=== PATIENT | female | born 1965 | race Caucasian/White ===

== ENCOUNTER → 2016-11-03 | Outpatient (CLI) | payer BC ==
[2016-11-03 08:34] LABS: CHLORIDE,CL 102 mmol/L (98-110); SODIUM,NA 139 mmol/L (136-146)
== END ==
LOC: MW.CHFP 07:30
PROVIDERS: ATTEND Nurse Practitioner Family
DX: E11.9 Type 2 diabetes mellitus without complications (principal)
CPT/HCPCS: 36415; 80053; 80061; 82044; 83036

== ENCOUNTER → 2016-11-04 | Outpatient (CLI) | payer BC ==
--- NOTE | 2016-11-06 20:15 | US ---
EXAMINATION: Transvaginal pelvic ultrasound HISTORY: Pain COMPARISON: None TECHNIQUE: Grayscale and color Doppler images obtained transvaginally. FINDINGS: Hysterectomy. Minimal free pelvic fluid. Both the left and right ovaries are normal in size, contour, and echogenicity demonstrating normal c olor and spectral Doppler flow. No adnexal masses. IMPRESSION: 1. Hysterectomy, otherwise unremarkable pelvic ultrasound.
== END | disposition home or self-care (01) ==
LOC: MW.US 15:03
PROVIDERS: ATTEND Nurse Practitioner Family
DX: R10.9 Unspecified abdominal pain (principal); Z90.710 Acquired absence of both cervix and uterus
CPT/HCPCS: 76830; 76830-26

== ENCOUNTER 2017-03-27 12:26 | Emergency (ER) | payer BC ==
--- NOTE | 2017-03-27 13:03 | EDM.PDOC ---
ED HPI GENERAL MEDICAL PROBLEM - General Chief Complaint: ENT Problem Stated Complaint: POSSIBLY REACTION TO MEDS Time Seen by Provider: 03/27/17 12:54 - History of Present Illness INITIAL COMMENTS - FREE TEXT/NARRATIVE: HISTORY AND PHYSICAL: History of present illness: The patient is a 51-year-old female who presents with complaints of swelling of her uvula since she had anesthesia for a colonoscopy and upper endoscopy on , 2 days ago. The patient states she was not intubated for the procedure but did have an oral airway placed and since that time she has noticed that her uvula is swollen and this tickling and gagging the back of her throat. She has had no vomiting has no shortness of breath has no swollen glands chest pain. She is able to eat and drink. Review of systems: As per history of present illness and below otherwise all systems reviewed and negative. Past medical history: As per history of present illness and as reviewed below otherwise noncontributory. Surgical history: As per history of present illness and as reviewed below otherwise noncontributory. Social history: No reported history of drug or alcohol abuse. Family history: As per history of present illness and as reviewed below otherwise noncontributory. Physical exam: Gen.: Well-developed well-nourished female who is nontoxic and speaking clearly without hoarseness or muffled voice. She is not breathless. HEENT: Atraumatic, normocephalic, pupils reactive, negative for conjunctival pallor or scleral icterus, mucous membranes moist, throat clear of exudates and there is some minimal posterior oropharyngeal erythema, the uvula is mildly inflamed but midline and does dip back below the base of the tongue. There is some shoddy anterior cervical adenopathy, neck supple, nontender, trachea midline. Lungs: Clear to auscultation, breath sounds equal bilaterally, chest nontender. Heart: S1S2, regular rate and rhythm no overt murmurs Abdomen: Soft, nondistended, nontender. NABS Pelvis: Deferred Genitourinary: Deferred. Rectal: Deferred. Extremities: Atraumatic, negative for cords or calf pain. Neurovascular unremarkable. Neuro: Awake, alert, oriented. Cranial nerves II through XII unremarkable. Cerebellum unremarkable. Motor and sensory unremarkable throughout. Exam nonfocal. Diagnostics: [] Therapeutics: [] I discussed with the patient that she needs to on antibiotics and she states she does have a drug allergy to penicillin but she has always taken amoxicillin without any complications. She absolutely assures me that she has no issues with amoxicillin and can't take it. The patient does state that she has had reactions to steroids so I will defer giving her any Impression: Uvulitis Definitive disposition and diagnosis as appropriate pending reevaluation and review of above. Throat Pain Score (Numeric/FACES): 3 - Related Data Allergies Allergy/AdvReac Type Severity Reaction Status Date / Time azithromycin [From Zithromax] Allergy Rash Verified 03/27/17 12:47 fluticasone propionate Allergy Cannot Verified 03/27/17 12:47 [From Flonase] Remember gentamicin [Gentamicin] Allergy Cannot Verified 03/27/17 12:47 Remember methylprednisolone Allergy Rash Verified 03/27/17 12:47 Penicillins Allergy Rash Verified 03/27/17 12:47 phenazopyridine HCl Allergy Hives Verified 03/27/17 12:47 [From Pyridium] Sulfa (Sulfonamide Allergy Rash Verified 03/27/17 12:47 Antibiotics) Home Meds: Home Meds Aspirin [Redwood Aspirin] 81 mg PO DAILY 08/20/14 [History] Cetirizine HCl 10 mg PO DAILY 08/20/14 [History] Hydrochlorothiazide 12.5 mg PO DAILY 08/20/14 [History] Potassium Chloride [Klor-Con 10] 10 meq PO DAILY 08/20/14 [History] diphenhydrAMINE [Benadryl] 25 mg PO ASDIRECTED PRN 08/20/14 [History] metFORMIN HCl [Metformin HCl] 1,000 mg PO BID 08/20/14 [History] Dapagliflozin Propanediol [Farxiga] 10 mg PO DAILY 08/01/15 [History] Lisinopril 10 mg PO DAILY 03/27/17 [History] Past Medical History HEENT History: Reports: None Cardiovascular History: Reports: Heart Murmur, Hypertension Respiratory History: Reports: None Gastrointestinal History: Reports: GERD Genitourinary History: Reports: Renal Calculus Musculoskeletal History: Reports: Other (See Below) Other Musculoskeletal History: cyst removed from rt wrist Neurological History: Reports: None Psychiatric History: Reports: None Endocrine/Metabolic History: Reports: Diabetes, Type II Hematologic History: Reports: None Immunologic History: Reports: None Oncologic (Cancer) History: Reports: None Dermatologic History: Reports: Other (See Below) Other Dermatologic History: eczema to rt foot - Past Surgical History Head Surgeries/Procedures: Reports: None GI Surgical History: Reports: Cholecystectomy Social & Family History - Tobacco Use Smoking Status *Q: Never Smoker Second Hand Smoke Exposure: No - Caffeine Use Caffeine Use: Reports: Soda - Alcohol Use Days Per Week of Alcohol Use: 1 Number of Drinks Per Day: 2 Total Drinks Per Week: 2 - Recreational Drug Use Recreational Drug Use: No Drug Use in Last 12 Months: No ED ROS GENERAL - Review of Systems Review Of Systems: ROS reveals no pertinent complaints other than HPI. ED EXAM, GENERAL - Physical Exam Exam: See Below (See dictation) Course - Vital Signs Last Recorded V/S: Last Vital Signs Temp 35.9 C 03/27/17 12:44 Pulse 77 03/27/17 12:44 Resp 18 03/27/17 12:44 BP 151/87 H 03/27/17 12:44 Pulse Ox 96 03/27/17 12:44 Departure - Departure Time of Disposition: 13:01 Disposition: Home, Self-Care 01 Condition: Good Clinical Impression: Uvulitis - Discharge Information Forms: ED Department Discharge Additional Instructions: The following information is given to patients seen in the emergency department who are being discharged to home. This information is to outline your options for follow-up care. We provide all patients seen in our emergency department with a follow-up referral. The need for follow-up, as well as the timing and circumstances, are variable depending upon the specifics of your emergency department visit. If you don't have a primary care physician on staff, we will provide you with a referral. We always advise you to contact your personal physician following an emergency department visit to inform them of the circumstance of the visit and for follow-up with them and/or the need for any referrals to a consulting specialist. The emergency department will also refer you to a specialist when appropriate. This referral assures that you have the opportunity for followup care with a specialist. All of these measure are taken in an effort to provide you with optimal care, which includes your followup. Under all circumstances we always encourage you to contact your private physician who remains a resource for coordinating your care. When calling for followup care, please make the office aware that this follow-up is from your recent emergency room visit. If for any reason you are refused follow-up, please contact the [facility] emergency department at and ask to speak to the emergency department charge nurse. [facility] Primary care- Internal Medicine and Family [address] [id number] Push hydration and try to avoid foods that are acidic or very salty as this will irritate the area in her throat. Take antibiotics as directed until they are finished. Please call and follow-up with primary care next few days to reevaluate your treatment return to ER as needed and as discussed.
[2017-03-27 13:21] VITALS: BP 135/88
== END 2017-03-27 13:17 | disposition home or self-care (01) ==
LOC: MW.ED 12:26
DX: K12.2 Cellulitis and abscess of mouth (principal); I10 Essential (primary) hypertension; K21.9 Gastro-esophageal reflux disease without esophagitis; Z88.2 Allergy status to sulfonamides; Z79.82 Long term (current) use of aspirin; E11.9 Type 2 diabetes mellitus without complications; Z79.84 Long term (current) use of oral hypoglycemic drugs; Z79.899 Other long term (current) drug therapy; Z87.442 Personal history of urinary calculi; Z88.0 Allergy status to penicillin; Z88.1 Allergy status to other antibiotic agents; Z90.49 Acquired absence of other specified parts of digestive tract
CPT/HCPCS: 99283

== ENCOUNTER 2017-08-21 10:22 | Emergency (ER) | payer BC ==
--- NOTE | 2017-08-21 11:10 | EDM.PDOC ---
ED HPI GENERAL MEDICAL PROBLEM - General Chief Complaint: Genitourinary Problem Stated Complaint: PAINFUL URINATION Time Seen by Provider: 08/21/17 10:40 Source of Information: Reports: Patient History Limitations: Reports: No Limitations - History of Present Illness INITIAL COMMENTS - FREE TEXT/NARRATIVE: History of present illness: [52-year-old female comes in complaining of potential kidney stones. Patient indicates that she has a history of same and that she is presenting with the same and/or similar symptoms] Review of systems: As per history of present illness and below otherwise all systems reviewed and negative. Past medical history: As per history of present illness and as reviewed below otherwise noncontributory. Surgical history: As per history of present illness and as reviewed below otherwise noncontributory. Social history: No reported history of drug or alcohol abuse. Family history: As per history of present illness and as reviewed below otherwise noncontributory. Physical exam: HEENT: Atraumatic, normocephalic, pupils reactive, negative for conjunctival pallor or scleral icterus, mucous membranes moist, throat clear, neck supple, nontender, trachea midline. Lungs: Clear to auscultation, breath sounds equal bilaterally, chest nontender. Heart: S1S2, regular, negative for clicks, rubs, or JVD. Abdomen: Soft, nondistended, nontender. Negative for masses or hepatosplenomegaly. Negative for costovertebral tenderness. Pelvis: Stable nontender. Genitourinary: Deferred. Rectal: Deferred. Extremities: Atraumatic, negative for cords or calf pain. Neurovascular unremarkable. Neuro: Awake, alert, oriented. Cranial nerves II through XII unremarkable. Cerebellum unremarkable. Motor and sensory unremarkable throughout. Exam nonfocal. Close assessment is benign save subjective complaint as noted in history of present illness. Hematuria noted on exam Diagnostics: [CBC, CMP, UA] Therapeutics: [IV fluid] Impression: [#1Renal calculi #2 UTI #3 hematuria] Plan: [Macrobid follow-up with urologist] Definitive disposition and diagnosis as appropriate pending reevaluation and review of above. - Related Data Allergies Allergy/AdvReac Type Severity Reaction Status Date / Time azithromycin [From Zithromax] Allergy Rash Verified 08/21/17 10:39 fluticasone propionate Allergy Cannot Verified 08/21/17 10:39 [From Flonase] Remember gentamicin [Gentamicin] Allergy Cannot Verified 08/21/17 10:39 Remember methylprednisolone Allergy Rash Verified 08/21/17 10:39 Penicillins Allergy Rash Verified 08/21/17 10:39 phenazopyridine HCl Allergy Hives Verified 08/21/17 10:39 [From Pyridium] Sulfa (Sulfonamide Allergy Rash Verified 08/21/17 10:39 Antibiotics) Home Meds: Home Meds Aspirin [Kennan Aspirin] 81 mg PO DAILY 08/20/14 [History] Cetirizine HCl 10 mg PO DAILY 08/20/14 [History] Hydrochlorothiazide 12.5 mg PO DAILY 08/20/14 [History] Potassium Chloride [Klor-Con 10] 10 meq PO DAILY 08/20/14 [History] diphenhydrAMINE [Benadryl] 25 mg PO ASDIRECTED PRN 08/20/14 [History] metFORMIN HCl [Metformin HCl] 1,000 mg PO BID 08/20/14 [History] Dapagliflozin Propanediol [Farxiga] 10 mg PO DAILY 08/01/15 [History] Lisinopril 10 mg PO DAILY 03/27/17 [History] Liraglutide [Victoza] 0.6 mg SQ DAILY 08/21/17 [History] Nitrofurantoin Monohyd/M-Cryst [Macrobid 100 mg Capsule] 100 mg PO BID #20 capsule 08/21/17 [Rx] Past Medical History HEENT History: Reports: None Cardiovascular History: Reports: Heart Murmur, Hypertension Respiratory History: Reports: None Gastrointestinal History: Reports: GERD Genitourinary History: Reports: Renal Calculus Musculoskeletal History: Reports: Other (See Below) Other Musculoskeletal History: cyst removed from rt wrist Neurological History: Reports: None Psychiatric History: Reports: None Endocrine/Metabolic History: Reports: Diabetes, Type II Hematologic History: Reports: None Immunologic History: Reports: None Oncologic (Cancer) History: Reports: None Dermatologic History: Reports: Other (See Below) Other Dermatologic History: eczema to rt foot - Past Surgical History Head Surgeries/Procedures: Reports: None GI Surgical History: Reports: Cholecystectomy Social & Family History - Family History Family Medical History: Noncontributory - Tobacco Use Smoking Status *Q: Never Smoker Second Hand Smoke Exposure: No - Caffeine Use Caffeine Use: Reports: Soda - Alcohol Use Days Per Week of Alcohol Use: 1 Number of Drinks Per Day: 2 Total Drinks Per Week: 2 - Recreational Drug Use Recreational Drug Use: No Drug Use in Last 12 Months: No ED ROS GENERAL - Review of Systems Review Of Systems: See Below (History of present illness) ED EXAM, GENERAL - Physical Exam Exam: See Below (See history of present illness) Course - Vital Signs Last Recorded V/S: Last Vital Signs Temp 36.6 C 08/21/17 10:43 Pulse 68 08/21/17 10:43 Resp 18 08/21/17 10:43 BP 154/98 H 08/21/17 10:43 Pulse Ox 96 08/21/17 10:43 - Orders/Labs/Meds Orders: Active Orders 24 hr Category Date Time Status Abdomen Pelvis wo Cont [CT] Stat Exams 08/21/17 11:54 Taken Labs: Laboratory Tests 08/21/17 08/21/17 08/21/17 Range/Units 10:30 12:03 12:03 WBC 10.58 (4.0-11.0) K/uL RBC 4.63 (4.30-5.90) M/uL Hgb 14.4 (12.0-16.0) g/dL Hct 42.2 (36.0-46.0) % MCV 91.1 (80.0-98.0) fL MCH 31.1 (27.0-32.0) pg MCHC 34.1 (31.0-37.0) g/dL RDW Std Deviation 44.0 (28.0-62.0) fl RDW Coeff of Kelle 13 (11.0-15.0) % Plt Count 270 (150-400) K/uL MPV 9.00 (7.40-12.00) fL Neut % (Auto) 65.2 (48.0-80.0) % Lymph % (Auto) 25.2 (16.0-40.0) % [place] % (Auto) 5.9 (0.0-15.0) % Eos % (Auto) 3.3 (0.0-7.0) % Baso % (Auto) 0.4 (0.0-1.5) % Neut # (Auto) 6.9 H (1.4-5.7) K/uL Lymph # (Auto) 2.7 H (0.6-2.4) K/uL [place] # (Auto) 0.6 (0.0-0.8) K/uL Eos # (Auto) 0.4 (0.0-0.7) K/uL Baso # (Auto) 0.0 (0.0-0.1) K/uL Nucleated RBC % 0.0 /100WBC Nucleated RBCs # 0 K/uL Sodium 141 (136-146) mmol/L Potassium 4.1 (3.5-5.1) mmol/L Chloride 106 (98-110) mmol/L Carbon Dioxide 24 (21-31) mmol/L BUN 11 (6.0-23.0) mg/dL Creatinine 0.7 (0.6-1.5) mg/dL Est Cr Clr Drug Dosing 81.18 mL/min Estimated GFR (MDRD) > 60.0 ml/min Glucose 105 (60-110) mg/dL Calcium 9.3 (8.8-10.8) mg/dL Total Bilirubin 0.5 (0.1-1.5) mg/dL AST 33 (5-40) IU/L ALT 52 (8-54) IU/L Alkaline Phosphatase 98 (40-150) Total Protein 7.4 (6.0-8.0) g/dL Albumin 4.2 (3.5-5.0) g/dL Globulin 3.2 (2.0-3.5) g/dL Albumin/Globulin Ratio 1.3 (1.3-2.8) Urine Color YELLOW Urine Appearance CLEAR Urine pH 6.5 (5.0-8.0) Ur Specific [place] <= 1.005 (1.001-1.035) Urine Protein 100 (NEGATIVE) mg/dL Urine Glucose (UA) >=1000 (NEGATIVE) mg/dL Urine Ketones NEGATIVE (NEGATIVE) mg/dL Urine Occult Blood LARGE H (NEGATIVE) Urine Nitrite NEGATIVE (NEGATIVE) Urine Bilirubin NEGATIVE (NEGATIVE) Urine Urobilinogen 0.2 (<2.0) EU/dL Ur Leukocyte Esterase TRACE (NEGATIVE) Urine RBC 110-115 (0-2/HPF) Urine WBC 85-90 (0-5/HPF) Ur Epithelial Cells FEW (NONE-FEW) Urine Bacteria FEW (NEGATIVE) Meds: Medications Discontinued Medications Generic Name Dose Route Start Last Admin Trade Name Freq PRN Reason Stop Dose Admin Sodium Chloride 1,000 mls @ 999 mls/hr 08/21/17 11:50 08/21/17 13:05 Normal Saline IV 08/21/17 12:50 999 mls/hr STAT ONE Administration Ketorolac Tromethamine 30 mg 08/21/17 11:50 08/21/17 13:05 Toradol IVPUSH 08/21/17 11:51 30 mg ONETIME ONE Administration Departure - Departure Time of Disposition: 13:32 Disposition: Home, Self-Care 01 Condition: Good Clinical Impression: UTI, Urinary tract infectious disease, Kidney stone - Discharge Information Prescriptions: Nitrofurantoin Monohyd/M-Cryst [Macrobid 100 mg Capsule] 100 mg PO BID #20 capsule Referrals: Carli Lazcano [employer] [employer]SULTANT [Primary Care Provider] - Forms: ED Department Discharge Additional Instructions: The following information is given to patients seen in the emergency department who are being discharged to home. This information is to outline your options for follow-up care. We provide all patients seen in our emergency department with a follow-up referral. The need for follow-up, as well as the timing and circumstances, are variable depending upon the specifics of your emergency department visit. If you don't have a primary care physician on staff, we will provide you with a referral. We always advise you to contact your personal physician following an emergency department visit to inform them of the circumstance of the visit and for follow-up with them and/or the need for any referrals to a consulting specialist. The emergency department will also refer you to a specialist when appropriate. This referral assures that you have the opportunity for follow-up care with a specialist. All of these measure are taken in an effort to provide you with optimal care, which includes your follow-up. Under all circumstances we always encourage you to contact your private physician who remains a resource for coordinating your care. When calling for follow-up care, please make the office aware that this follow-up is from your recent emergency room visit. If for any reason you are refused follow-up, please contact the [facility] Emergency Department at and asked to speak to the emergency department charge nurse. Take medication as directed Follow-up with PCP in 3-5 days Return to ED as needed as discussed - My Orders Last 24 Hours: My Active Orders 08/21/17 11:54 Abdomen Pelvis wo Cont [CT] Stat - Assessment/Plan Last 24 Hours: My Active Orders 08/21/17 11:54 Abdomen Pelvis wo Cont [CT] Stat
[2017-08-21] MEDS ORDERED: Ketorolac 30 MG/ML SDV IVPUSH ONE (11:50)
[2017-08-21] MEDS ORDERED: Sodium Chloride 0.9% 1,000 ML IV ONE (11:50)
[2017-08-21 12:35] LABS: CHLORIDE,CL 106 mmol/L (98-110); SODIUM,NA 141 mmol/L (136-146)
[2017-08-21 13:52] VITALS: BP 153/89
--- NOTE | 2017-08-24 18:18 | CT ---
EXAM DATE: 08/21/17 PATIENT'S AGE: 52 Patient: DOTTIE MCNEIL Facility: [place], [place] Site . Site : [id number] Study: CT Abdomen/Pelvis [id number]/30/2017 12:38:59 PM Ordering Physician: Doctor Guevara Final Report: Indication: Flank pain painful urination Technique: Non contrast CT abdomen and pelvis with coronal and sagittal reformatted images obtained Comparison: No comparison studies are available. Findings: Minimal basilar atelectasis. Severe fatty liver. The spleen, pancreas, left adrenal glands unremarkable. 1.3 centimeter right adrenal nodule incompletely assessed on this study. Nonobstructing renal calculi . Low-density round lesion in the left lower pole incompletely assessed but may represent a small cyst. measure up to 6 millimeters on the left. Normal appendix. Urinary bladder appears unremarkable. Diverticulosis. No aortic aneurysm. No inflammatory change. Hysterectomy. No suspicious bony lesions. Impression: 1. No acute findings in the abdomen or pelvis. 2. Nonobstructing renal calculi measuring up to 6 millimeters on the left. No hydronephrosis. 3. 1.3 centimeter right adrenal nodule incompletely assessed on this study . 4. Severe hepatic steatosis. 5. Diverticulosis. Please note that all CT scans at this facility use dose modulation, iterative reconstruction, and/or weight-based dosing when appropriate to reduce radiation dose to as low as reasonably achievable. Dictated by Elif Zepeda MD @ Aug 21 2017 1:14PM (Electronic Signature) Report Signed by Proxy. SPEEDY
== END 2017-08-21 13:55 | disposition home or self-care (01) ==
LOC: MW.ED 10:22
DX: N20.0 Calculus of kidney (principal); N39.0 Urinary tract infection, site not specified; I10 Essential (primary) hypertension; E11.9 Type 2 diabetes mellitus without complications; Z88.1 Allergy status to other antibiotic agents; Z88.2 Allergy status to sulfonamides; Z88.8 Allergy status to other drugs, medicaments and biological substances; Z79.82 Long term (current) use of aspirin; Z79.84 Long term (current) use of oral hypoglycemic drugs; Z79.899 Other long term (current) drug therapy
CPT/HCPCS: 36415; 74176; 80053; 81001; 85025; 96374; 99284; J1885; J7040; 99283

== ENCOUNTER 2020-08-10 09:57 | Emergency (ER) | payer BC ==
--- NOTE | 2020-08-10 11:59 | CR ---
INDICATION: Left arm pain. COMPARISON: None. TECHNIQUE: Two views of the left humerus. FINDINGS: Normal mineralization and alignment. No fracture or dislocation. Soft tissues are unremarkable. IMPRESSION: No acute osseous abnormality. Dictated by Leandro Bolton MD @ 08/10/2020 11:58:54 AM Dictated by: Leandro Bolton MD @ 08/10/2020 11:58:59 (Electronically Signed)
--- NOTE | 2020-08-10 13:31 | US ---
INDICATION: Tender distal humerus and distal arm along the superior aspect of the antecubital fossa. The left antecubital fossa blood draw COMPARISON: None. TECHNIQUE: Bilateral upper extremity and neck venous ultrasound performed including stevens scale/2D, color Doppler, and spectral Doppler imaging including spectral waveform analysis. FINDINGS: The internal jugular, innominate, subclavian, axillary, brachial, radial, ulnar, and cephalic veins were patent and negative for thrombus where seen bilaterally. No sonographic abnormality in the left antecubital fossa or superior to the left antecubital fossa in the site of tenderness. Left basilic vein is patent and negative for thrombus. Right basilic vein either not visualized or not interrogated. Remainder negative. IMPRESSION: No evidence for DVT in either upper extremity or neck venous system. No sonographic abnormality in the left antecubital fossa or superior to the left antecubital fossa in the site of tenderness. Dictated by Chuy Grigsby MD @ Aug 10 2020 1:25PM Signed by Dr. Chuy Grigsby @ Aug 10 2020 1:29PM
--- NOTE | 2020-08-10 13:39 | EDM.PDOC ---
ED HPI GENERAL MEDICAL PROBLEM - General Chief Complaint: Upper Extremity Injury/Pain Stated Complaint: POSSIBLE BLOOD CLOT Time Seen by Provider: 08/10/20 10:00 Source of Information: Reports: Patient History Limitations: Reports: No Limitations - History of Present Illness INITIAL COMMENTS - FREE TEXT/NARRATIVE: HISTORY AND PHYSICAL: History of present illness: Patient is a 55-year-old female who presents emergency room today with concern of possible blood clot to her left upper extremity over the past 2 to 3 days. Patient states approximately 6 to 7 days ago, she did have a blood drawn her left antecubital area for routine lab work with her primary care provider. Patient states that she felt the person put the tourniquet to lower around her elbow. Patient states that she did not have pain immediately following the drop but starting 2 to 3 days ago she has had worsening mid left humeral pain. Patient denies any direct trauma or injury but states that she was concerned about a possible blood clot as she has an extensive family history of heart concerns and concern for possible blood clots within her family. Patient denies any redness or swelling. Patient denies any other associated symptoms but states that she does have pain with palpation of her biceps muscle. Patient states it does feel like a muscular pain/soreness. Denies any other symptoms or concerns. Patient denies fever, chills, chest pain, shortness of breath, or cough. Denies headache, neck stiff ness, change in vision, syncope, or near syncope. Denies nausea, vomiting, abdominal pain, diarrhea, constipation, or dysuria. Has not noted any blood in urine or stool. Patient has been eating and drinking appropriately. Review of systems: As per history of present illness and below otherwise all systems reviewed and negative. Past medical history: As per history of present illness and as reviewed below otherwise noncontributory. Surgical history: As per history of present illness and as reviewed below otherwise noncontributory. Social history: See social history for further information Family history: As per history of present illness and as reviewed below otherwise no ncontributory. Physical exam: General: Patient is alert, oriented, and in no acute distress. Patient sitting comfortably on exam table. Vital stable and reviewed by me. HEENT: Atraumatic, normocephalic, pupils equal and reactive bilaterally, negative for conjunctival pallor or scleral icterus, mucous membranes moist, TMs normal bilaterally, throat clear, neck supple, nontender, trachea midline. No drooling or trismus noted. No meningeal signs. No hot potato voice noted. Lungs: Clear to auscultation, breath sounds equal bilaterally, chest nontender. Heart: S1S2, regular rate and rhythm without overt murmur Abdomen: Soft, nondistended, nontender. Negative for masses or hepatosplenomegaly. Negative for costovertebral tenderness. Pelvis: Stable nontender. Genitourinary: Deferred. Rectal: Deferred. Skin: Intact, warm, dry. No lesions or rashes noted. Extremities: No obvious deformity of the complete left upper extremity. Patient does have pain with palpation of the left UE mid humeral area, specifically of the biceps muscle body. Patient does have full range of motion of complete bilateral upper extremities without pain or difficulty. Radial pulse is grossly intact bilaterally with capillary refill less than 2 seconds. Patient does have intact sensation to light and deep palpation of the left upper extremity. Otherwise, atraumatic, negative for cords or calf pain. Neurovascular unremarkable. Neuro: Awake, alert, oriented. Cranial nerves II through XII unremarkable. Cerebellum unremarkable. Motor and sensory unremarkable throughout. Exam nonfocal. Notes: Signs and symptoms that would prompt return to the ED thoroughly discussed with patient. Discussed importance for follow-up with a primary care provider. Voices understanding and is agreeable to plan of care. Denies any further questions or concerns at this time. Diagnostics: Humerus x-ray, venous ultrasound upper extremity Therapeutics: Pain medication was offered to patient but she declines at this time Prescription: None Impression: Left arm pain Plan: 1. Rest, ice, elevate the affected extremity. You can apply ice 15 minutes on, 15 minutes off. 2. Tylenol and/or Ibuprofen as directed for pain management or discomfort. 3. Follow up with the primary care provider as discussed. Return to the ED as needed and as discussed. Definitive disposition and diagnosis as appropriate pending reevaluation and review of above. L upper arm Pain Score (Numeric/FACES): 4 - Related Data Allergies Allergy/AdvReac Type Severity Reaction Status Date / Time azithromycin [From Zithromax] Allergy Rash Verified 08/10/20 13:21 fluticasone propionate Allergy Cannot Verified 08/10/20 13:21 [From Flonase] Remember gentamicin [Gentamicin] Allergy Cannot Verified 08/10/20 13:21 Remember methylprednisolone Allergy Rash Verified 08/10/20 13:21 Penicillins Allergy Rash Verified 08/10/20 13:21 phenazopyridine HCl Allergy Hives Verified 08/10/20 13:21 [From Pyridium] Sulfa (Sulfonamide Allergy Rash Verified 08/10/20 13:21 Antibiotics) Home Meds: Home Meds Aspirin [Saucier Aspirin EC] 81 mg PO DAILY 08/20/14 [History] Cetirizine HCl 10 mg PO DAILY 08/20/14 [History] Potassium Chloride [Klor-Con 10] 10 meq PO DAILY 08/20/14 [History] diphenhydrAMINE [Benadryl] 25 mg PO ASDIRECTED PRN 08/20/14 [History] hydroCHLOROthiazide [Hydrochlorothiazide] 12.5 mg PO DAILY 08/20/14 [History] metFORMIN HCl [Metformin HCl] 1,000 mg PO BID 08/20/14 [History] Dapagliflozin Propanediol [Farxiga] 10 mg PO DAILY 08/01/15 [History] Lisinopril 10 mg PO DAILY 03/27/17 [History] Liraglutide [Victoza] 0.6 mg SQ DAILY 08/21/17 [History] Nitrofurantoin Monohyd/M-Cryst [Macrobid 100 mg Capsule] 100 mg PO BID #20 capsule 08/21/17 [Rx] Tamsulosin [Flomax] 0.4 mg PO BIDPC 7 Days #14 cap.er 08/21/17 [Rx] Past Medical History HEENT History: Reports: None Cardiovascular History: Reports: Heart Murmur, Hypertension Respiratory History: Reports: None Gastrointestinal History: Reports: GERD Genitourinary History: Reports: Renal Calculus 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: Musculoskeletal History: Reports: Other (See Below) Other Musculoskeletal History: cyst removed from rt wrist Neurological History: Reports: None Psychiatric History: Reports: None Endocrine/Metabolic History: Reports: Diabetes, Type II Hematologic History: Reports: None Immunologic History: Reports: None Oncologic (Cancer) History: Reports: None Dermatologic History: Reports: Other (See Below) Other Dermatologic History: eczema to rt foot - Past Surgical History Head Surgeries/Procedures: Reports: None HEENT Surgical History: Reports: Tonsillectomy Cardiovascular Surgical History: Reports: None GI Surgical History: Reports: Cholecystectomy Female Surgical History: Reports: Hysterectomy, Lithotripsy/ESWL Endocrine Surgical History: Reports: None Musculoskeletal Surgical History: Reports: None Dermatological Surgical History: Reports: None Social & Family History - Family History Family Medical History: No Pertinent Family History - Tobacco Use Tobacco Use Status *Q: Never Tobacco User Second Hand Smoke Exposure: No - Caffeine Use Caffeine Use: Reports: None - Recreational Drug Use Recreational Drug Use: No Review of Systems - Review of Systems Review Of Systems: Comprehensive ROS is negative, except as noted in HPI. ED EXAM, GENERAL - Physical Exam Exam: See Below (see dictation) Course - Vital Signs Last Recorded V/S: Last Vital Signs Temp 97.2 F 08/10/20 10:44 Pulse 89 08/10/20 10:44 Resp 17 08/10/20 10:44 BP 124/81 08/10/20 10:44 Pulse Ox 96 08/10/20 10:44 Departure - Departure Time of Disposition: 13:38 Disposition: Home, Self-Care 01 Clinical Impression: Left arm pain - Discharge Information Instructions: How to Use Cold Therapy, [id number] Referrals: Tomi Hernandez MD [Primary Care Provider] - Forms: ED Department Discharge Additional Instructions: The following information is given to patients seen in the emergency department who are being discharged to home. This information is to outline your options for follow-up care. We provide all patients seen in our emergency department with a follow-up referral. The need for follow-up, as well as the timing and circumstances, are variable depending upon the specifics of your emergency department visit. If you don't have a primary care physician on staff, we will provide you with a referral. We always advise you to contact your personal physician following an emergency department visit to inform them of the circumstance of the visit and for follow-up with them and/or the need for any referrals to a consulting specialist. The emergency department will also refer you to a specialist when appropriate. This referral assures that you have the opportunity for follow-up care with a specialist. All of these measure are taken in an effort to provide you with optimal care, which includes your follow-up. Under all circumstances we always encourage you to contact your private physician who remains a resource for coordinating your care. When calling for follow-up care, please make the office aware that this follow-up is from your recent emergency room visit. If for any reason you are refused follow-up, please contact the [facility] at and asked to speak to the emergency department charge nurse. [facility] [address] [place] [address] [id number] 1. Rest, ice, elevate the affected extremity. You can apply ice 15 minutes on, 15 minutes off. 2. Tylenol and/or Ibuprofen as directed for pain management or discomfort. 3. Follow up with the primary care provider as discussed. Return to the ED as needed and as discussed. Sepsis Event Note (ED) - Evaluation Sepsis Screening Result: No Definite Risk - Focused Exam Vital Signs: Vital Signs Temp Pulse Resp BP Pulse Ox 08/10/20 10:44 97.2 F 89 17 124/81 96
[2020-08-10 15:00] VITALS: BP 128/78; PULSE 87
== END 2020-08-10 13:57 | disposition home or self-care (01) ==
LOC: MW.ED 09:57
DX: M79.602 Pain in left arm (principal); I10 Essential (primary) hypertension; E11.9 Type 2 diabetes mellitus without complications; Z88.8 Allergy status to other drugs, medicaments and biological substances; Z88.1 Allergy status to other antibiotic agents; Z88.0 Allergy status to penicillin; Z88.2 Allergy status to sulfonamides; Z79.82 Long term (current) use of aspirin; Z79.899 Other long term (current) drug therapy
CPT/HCPCS: 73060-26-LT; 73060-LT; 93970; 93970-26; 99282; 99284-25